=== PATIENT | female | born 1980 | race Caucasian/White ===

== ENCOUNTER 2022-07-28 11:26 | Emergency (ER) | payer SELFPAY ==
[2022-07-28 12:54] VITALS: BP 125/81; PULSE 77; RESP 18; TEMP 98
--- NOTE | 2022-07-28 15:45 | ED ---
General Adult HPI - General Source: patient Mode of arrival: wheelchair Limitations: no limitations <MaryjeannineKirby Neftaly - Last Filed: 07/28/22 15:49> <Roe Abernathy - Last Filed: 07/28/22 18:45> - General Chief complaint: Chest Pain Stated complaint: chest pain Time Seen by Provider: 07/28/22 15:32 - History of Present Illness Initial comments: Dictation was produced using [employer] dictation software. please excuse any grammatical, word or spelling errors. Chief Complaint: Patient is a 41-year-old female presents with pleuritic chest pain History of Present Illness: A 41-year-old female she has past medical history of splenectomy and migraines. Patient reports that she is up-to-date with her vaccinations. Since yesterday she's been dealing with pleuritic chest pain to the left anterior chest. Patient reports that is worse when she takes a deep breath. Patient normally resides in [place]. She drove 3 hours days ago. Patient has any lower extremity swelling or pain. Patient denies any history of PEs however she does report having history of elevated d-dimer. Patient denies any shortness of breath. Patient states that her symptoms today feel unlike anything she is expense in her life. Patient denies any dull achy chest pressure. No associated diaphoresis or nausea. Patient does not take any daily medications. The ROS documented in this emergency department record has been reviewed and confirmed by me. Those systems with pertinent positive or negative responses h ave been documented in the HPI. All other systems are other negative and/or noncontributory. PHYSICAL EXAM: General Impression: Alert and oriented x3, not in acute distress HEENT: Normocephalic atraumatic, extra-ocular movements intact, pupils equal and reactive to light bilaterally, mucous membranes moist. Cardiovascular: Heart regular rate and rhythm Chest: Able to complete full sentences, no retractions, no tachypnea Abdomen: abdomen soft, non-tender, non-distended, no organomegaly Musculoskeletal: Pulses present and equal in all extremities, no peripheral edema Motor: no focal deficits noted Neurological: CN II-XII grossly intact, no focal motor or sensory deficits noted Skin: Intact with no visualized rashes Psych: Normal affect and mood ED course: 41-year-old female presents to emergency department for pleuritic chest pain. Patient recently drove from [place] 3 days ago. As upon arrival are within acceptable limits. Patient not tachycardic. She is not hypoxic. EKG does not show any signs of ischemia or infarction. Given patient's recent driving history and pleuritic chest pain there is concern for possible pulmonary embolism. Labs including d-dimer and troponin are ordered. EKG interpretation: Ventricular rate 64, sinus rhythm,. 167, care is 89, QTC 391. No LA prolongation, no QTC prolongation, no ST or T-wave changes noted. . Overall, this EKG is unremarkable Patient is signed out to Dr. Abernathy for follow-up of labs and imaging @ 400pm. (Kirby Hartley) - Related Data Allergies Allergy/AdvReac Type Severity Reaction Status Date / Time azithromycin AdvReac Rash/Hives Verified 07/28/22 17:29 Review of Systems ROS Other: All systems not noted in ROS Statement are negative. <Kirby Hartley - Last Filed: 07/28/22 15:49> ROS Other: All systems not noted in ROS Statement are negative. <Roe Abernathy - Last Filed: 07/28/22 18:45> ROS Statement: Those systems with pertinent positive or pertinent negative responses have been documented in the HPI. Past Medical History Past Medical History: CVA/TIA Additional Past Medical History / Comment(s): migraines History of Any Multi-Drug Resistant Organisms: None Reported Additional Past Surgical History / Comment(s): spleenectomy Past Psychological History: Depression Smoking Status: Former smoker Past Alcohol Use History: None Reported Past Drug Use History: None Reported <Kirby Hartley - Last Filed: 07/28/22 15:49> General Exam Limitations: no limitations <Kirby Hartley - Last Filed: 07/28/22 15:49> Course Vital Signs 07/28/22 11:40 Temperature 98 F Pulse Rate 77 Respiratory 18 Rate Blood Pressure 125/81 O2 Sat by Pulse 100 Oximetry Medical Decision Making - Lab Data Result diagrams: 07/28/22 17:23 07/28/22 15:58 <Roe Abernathy - Last Filed: 07/28/22 18:45> - Medical Decision Making The patient was received from previous shift. She does relate a pleuritic aspect to her chest pain. There is some reproducibility upon palpation. Her d- dimer came back elevated. The CTA of the chest does not show any evidence of pulmonary embolism or acute process. Remainder of labs are essentially within normal limits. It is felt as though her chest pain likely is related to pl euritis versus musculoskeletal chest pain. It is felt as though she stable for discharge. She is in no distress upon multiple re-evaluations. Return parameters are discussed. Close follow-up with her doctor recommended. (Roe Abernathy) - Lab Data Lab Results 07/28/22 07/28/22 07/28/22 Range/Units 15:30 15:30 15:58 WBC (3.8-10.6) k/uL RBC (3.80-5.40) m/uL Hgb (11.4-16.0) gm/dL Hct (34.0-46.0) % MCV (80.0-100.0) fL MCH (25.0-35.0) pg MCHC (31.0-37.0) g/dL RDW (11.5-15.5) % Plt Count (150-450) k/uL MPV Neutrophils % % Lymphocytes % % Monocytes % % Eosinophils % % Basophils % % Neutrophils # (1.3-7.7) k/uL Lymphocytes # (1.0-4.8) k/uL Monocytes # (0-1.0) k/uL Eosinophils # (0-0.7) k/uL Basophils # (0-0.2) k/uL PT 10.9 (9.0-12.0) sec INR 1.0 (<1.2) APTT 22.3 (22.0-30.0) sec D-Dimer 0.79 H (<0.60) mg/L FEU Sodium (137-145) mmol/L Potassium (3.5-5.1) mmol/L Chloride (98-107) mmol/L Carbon Dioxide (22-30) mmol/L Anion Gap mmol/L BUN (7-17) mg/dL Creatinine (0.52-1.04) mg/dL Est GFR (CKD-EPI)AfAm (>60 ml/min/1.73 sqM) Est GFR (CKD-EPI)NonAf (>60 ml/min/1.73 sqM) Glucose (74-99) mg/dL Calcium (8.4-10.2) mg/dL Troponin I (0.000-0.034) ng/mL Urine Color Colorless Urine Appearance Clear (Clear) Urine pH 7.0 (5.0-8.0) Ur Specific [place] 1.007 (1.001-1.035) Urine Protein Negative (Negative) Urine Glucose (UA) Negative (Negative) Urine Ketones Negative (Negative) Urine Blood Moderate H (Negative) Urine Nitrite Negative (Negative) Urine Bilirubin Negative (Negative) Urine Urobilinogen <2.0 (<2.0) mg/dL Ur Leukocyte Esterase Negative (Negative) Urine RBC <1 (0-5) /hpf Urine WBC <1 (0-5) /hpf Ur Squamous Epith Cells <1 (0-4) /hpf Urine HCG, Qual Not Detected (Not Detectd) 07/28/22 07/28/22 07/28/22 Range/Units 15:58 15:58 17:23 WBC 9.7 (3.8-10.6) k/uL RBC 4.46 (3.80-5.40) m/uL Hgb 13.0 (11.4-16.0) gm/dL Hct 42.2 (34.0-46.0) % MCV 94.7 (80.0-100.0) fL MCH 29.1 (25.0-35.0) pg MCHC 30.7 L (31.0-37.0) g/dL RDW 13.5 (11.5-15.5) % Plt Count 352 (150-450) k/uL MPV 8.0 Neutrophils % 55 % Lymphocytes % 35 % Monocytes % 4 % Eosinophils % 3 % Basophils % 2 % Neutrophils # 5.3 (1.3-7.7) k/uL Lymphocytes # 3.4 (1.0-4.8) k/uL Monocytes # 0.4 (0-1.0) k/uL Eosinophils # 0.2 (0-0.7) k/uL Basophils # 0.2 (0-0.2) k/uL PT (9.0-12.0) sec INR (<1.2) APTT (22.0-30.0) sec D-Dimer (<0.60) mg/L FEU Sodium 137 (137-145) mmol/L Potassium 5.0 (3.5-5.1) mmol/L Chloride 106 (98-107) mmol/L Carbon Dioxide 20 L (22-30) mmol/L Anion Gap 11 mmol/L BUN 13 (7-17) mg/dL Creatinine 0.53 (0.52-1.04) mg/dL Est GFR (CKD-EPI)AfAm >90 (>60 ml/min/1.73 sqM) Est GFR (CKD-EPI)NonAf >90 (>60 ml/min/1.73 sqM) Glucose 94 (74-99) mg/dL Calcium 8.9 (8.4-10.2) mg/dL Troponin I 0.018 (0.000-0.034) ng/mL Urine Color Urine Appearance (Clear) Urine pH (5.0-8.0) Ur Specific [place] (1.001-1.035) Urine Protein (Negative) Urine Glucose (UA) (Negative) Urine Ketones (Negative) Urine Blood (Negative) Urine Nitrite (Negative) Urine Bilirubin (Negative) Urine Urobilinogen (<2.0) mg/dL Ur Leukocyte Esterase (Negative) Urine RBC (0-5) /hpf Urine WBC (0-5) /hpf Ur Squamous Epith Cells (0-4) /hpf Urine HCG, Qual (Not Detectd) Disposition <Kirby Hartley - Last Filed: 07/28/22 15:49> Is patient prescribed a controlled substance at d/c from ED?: No Time of Disposition: 18:43 <Roe Abernathy - Last Filed: 07/28/22 18:45> Clinical Impression: Chest pain, Pleuritis, Elevated d-dimer Disposition: HOME SELF-CARE Condition: Good Instructions (If sedation given, give patient instructions): Pleurisy (ED), Chest Pain (ED) Additional Instructions: Please take Motrin or Aleve as needed for pain. Referrals: Nonstaff,Physician [Primary Care Provider] - 1-2 days
[2022-07-28 16:06] LABS: Appearance,Urine Clear (Clear); Bilirubin,Urine Negative (Negative); Blood,Urine Moderate (Negative); Color,Urine Colorless; Glucose,Urine (UA) Negative (Negative); Ketones,Urine Negative (Negative); Leukocyte Esterase,Urine Negative (Negative); Nitrite,Urine Negative (Negative); Protein,Urine Negative (Negative); RBC,Urine <1 /hpf (0-5); Specific Gravity,Urine 1.007 (1.001-1.035); Squamous Epithelial Cell,Urine <1 /hpf (0-4); Urobilinogen,Urine <2.0 mg/dL (<2.0); WBC,Urine <1 /hpf (0-5)
--- NOTE | 2022-07-28 16:27 | XR ---
EXAMINATION TYPE: XR chest 2V DATE OF EXAM: 07/28/2022 4:24 PM COMPARISON: None TECHNIQUE: XR chest 2V Frontal and lateral views of the chest. CLINICAL INDICATION:Female, 41 years old with history of pleurisy; FINDINGS: Lungs/Pleura: There is no evidence of pleural effusion, focal consolidation, or pneumothorax. Pulmonary vascularity: Unremarkable. Heart/mediastinum: Cardiomediastinal silhouette is unremarkable. Musculoskeletal: No acute osseous pathology. IMPRESSION: No acute cardiopulmonary disease/process.
[2022-07-28 16:56] LABS: African American GFR (CKD) >90 (>60 ml/min/1.73 sqM); Anion Gap 11 mmol/L; Blood Urea Nitrogen 13 mg/dL (7-17); Calcium 8.9 mg/dL (8.4-10.2); Carbon Dioxide 20 mmol/L (22-30); Chloride 106 mmol/L (98-107); Glucose 94 mg/dL (74-99); Non-African American GFR(CKD) >90 (>60 ml/min/1.73 sqM); Sodium 137 mmol/L (137-145)
[2022-07-28 17:11] LABS: Partial Thromboplastin Time 22.3 sec (22.0-30.0); Prothrombin Time 10.9 sec (9.0-12.0)
[2022-07-28 17:57] LABS: Basophils # (A) 0.2 k/uL (0-0.2); Basophils % (A) 2 %; Eosinophils # (A) 0.2 k/uL (0-0.7); Eosinophils % (A) 3 %; HCT 42.2 % (34.0-46.0); Lymphocytes # (A) 3.4 k/uL (1.0-4.8); Lymphocytes % (A) 35 %; MCH 29.1 pg (25.0-35.0); MCHC 30.7 g/dL (31.0-37.0); MCV 94.7 fL (80.0-100.0); Monocytes # (A) 0.4 k/uL (0-1.0); Monocytes % (A) 4 %; Neutrophils # (A) 5.3 k/uL (1.3-7.7); Neutrophils % (A) 55 %; Platelet Count 352 k/uL (150-450); RBC 4.46 m/uL (3.80-5.40); RDW 13.5 % (11.5-15.5); WBC 9.7 k/uL (3.8-10.6)
--- NOTE | 2022-07-28 18:23 | CT ---
EXAMINATION TYPE: CT angio chest DATE OF EXAM: 07/28/2022 COMPARISON: Single view HISTORY: PAIN, ELEVATED D DIMER CT DLP: 444.3 mGycm Automated exposure control for dose reduction was used. CONTRAST: Performed with IV Contrast, patient injected with 100ML mL of Isovue 370. Images obtained from the thoracic inlet to the diaphragm with the IV contrast. There are Three-D post processed images. The lungs are clear of infiltrate. No pleural effusion or pneumothorax. There is no mediastinal adeno tahir. There are no hilar masses. The ascending aorta measures 3.5 cm. No aneurysm or dissection. There is no filling defect in the pulmonary arteries. The thoracic spine is intact. No compression fr acture. Sternum is intact. The ribs appear intact. There is apparent absence of the spleen with a reg enerative spleen measures 5 cm in diameter. IMPRESSION: No evidence of pulmonary embolism. Negative exam.
== END 2022-07-28 18:50 | disposition home or self-care (01) ==
LOC: EC 11:26
DX: R07.81 Pleurodynia (principal); R79.89 Other specified abnormal findings of blood chemistry; Z87.891 Personal history of nicotine dependence; Z86.73 Personal history of transient ischemic attack (TIA), and cerebral infarction without residual deficits; Z88.1 Allergy status to other antibiotic agents
CPT/HCPCS: 36415; 93005; 85379; 80048; 84484; 85025; 85610; 85730; 81001; 81025; 71046; 71275; 99285; Q9967